=== PATIENT | female | born 1985 | race Caucasian/White ===

== ENCOUNTER 2017-05-22 03:31 | Inpatient (IN) | payer BC ==
[~2017-05-22] VITALS: Ht 165.1 cm; Wt 101.5 kg
[2017-05-28 08:57] VITALS: Ht 165.1 cm; Wt 101.5 kg
[2017-05-28] MEDS ORDERED: PRENTAB26 PO (09:01)
[2017-05-28] MEDS ORDERED: LACTATED RINGER'S 1000ML 1,000 ML IV PRN (09:19)
[2017-05-28] MEDS ORDERED: MISOPROSTOLTAB 50 MCG TAB PO PRN (09:30)
[2017-05-28] MEDS ORDERED: PENICILLIN G POTASSIUM IV 6 MU in DEXTROSE 5% 250ML 250 ML IV ONE (09:45)
[2017-05-28 09:48] LABS: HEMATOCRIT 38.7 % (37-47); MEAN CELL VOLUME 87.6 fL (80-100); MEAN CORPUSCULAR HEMOGLOBIN 30.3 pg (25-34); MEAN CORPUSCULAR HGB CONC 34.6 g/dl (32-36); MEAN PLATELET VOLUME 12.5 fL (7.4-10.4); PLATELET COUNT 161 K/uL (130-400); RED BLOOD COUNT 4.42 M/uL (4.2-5.4)
--- NOTE | 2017-05-28 13:42 | HISTORY & PHYSICAL EXAMINATION ---
DATE OF ADMISSION: 05/28/2017 HISTORY OF PRESENT ILLNESS: The patient is a 32-year-old G1, P0, due date 05/22/2017, making her 40 weeks and 6 days today, who presented to labor and delivery for induction of labor for postdates. On arrival to labor and delivery, she had no shortness of breath, no chills, no fever. heart rate is category 1. COURSE: Has been unremarkable. LABS: Blood type is A positive, antibody negative, rubella immune, GBS positive. PAST MEDICAL HISTORY: None. PAST SURGICAL HISTORY: History of dental surgery. SOCIAL HISTORY: The patient denies tobacco, drug or alcohol use. OBSTETRICS/GYNECOLOGIC HISTORY: This is the patient's first . ALLERGIES: THE PATIENT IS ALLERGIC TO TRAMADOL. PHYSICAL EXAMINATION: GENERAL: Well-developed, well-nourished white female in no acute distress. HEART: S1, S2, regular rhythm and rate. LUNGS: Clear to auscultation bilaterally. ABDOMEN: Gravid. Bedside ultrasound shows cephalic presentation. Pelvic exam shows a fingertip, thick and posterior, -3 station. Estimated weight by Stepan's is 8.5. EXTREMITIES: No cyanosis, clubbing or edema. ASSESSMENT AND PLAN: A 32-year-old G1, P0 at 40 weeks and 6 days, here for post-dates labor induction. The patient is admitted. We discussed induction plan. The patient has agreed to plan. The patient is positive GBS, so will receive GBS prophylaxis when labor becomes active. PLAN: Anticipate vaginal delivery.
[2017-05-28] MEDS ORDERED: DINOPROSTONE 10 MG INSERT PV ONE (21:30)
[2017-05-29] MEDS ORDERED: NURSING VERBAL MED ORDER ONE (02:15)
[2017-05-29] MEDS ORDERED: LACTATED RINGER'S 1000ML 500 ML IV PRN ×3 (09:31→22:12)
[2017-05-29] MEDS ORDERED: OXYTOCIN 30 UNITS/500ML NSS IV PRN (09:45)
[2017-05-29] MEDS: LACTATED RINGER'S 1000ML 1,000 ML IV SCH ×3 (09:50→13:24)
[2017-05-29] MEDS ORDERED: PENICILLIN G POTASSIUM IV 6 MU in DEXTROSE 5% 250ML 250 ML IV ONE (10:15)
[2017-05-29] MEDS ORDERED: EpHEDrine SULFATE INJ 50 MG/ML AMP ONE (11:38)
[2017-05-29] MEDS ORDERED: BUPIVACAINE 0.25% 30 ML VIAL ONE (11:38)
[2017-05-29] MEDS ORDERED: FENTANYL CITRATE INJ 50 MCG/1 ML 2 ML VIAL ONE (11:39)
[2017-05-29] MEDS ORDERED: FENTANYL 2MCG/ML ROPIV 1.25MG/ML 100ML BAG EPI ONE (11:39)
[2017-05-29] MEDS ORDERED: FENTANYL 2MCG/ML ROPIV 1.25MG/ML 100ML BAG EPI PRN (12:45)
[2017-05-29] MEDS ORDERED: NALOXONE HCL INJ 0.4 MG/1 ML VIAL/CARP IV PRN (12:45)
[2017-05-29] MEDS ORDERED: EpHEDrine SULFATE INJ 50 MG/ML AMP IV PRN ×3 (12:45→22:15)
[2017-05-29] MEDS: PENICILLIN G POTASSIUM IV 3 MU in DEXTROSE 5% 100ML 100 ML IV PRN ×2 (14:32→18:56)
[2017-05-29] MEDS ORDERED: CITRIC ACID/SODIUM CITRATE 15 ML UDC PO ONE (20:15)
[2017-05-29] MEDS ORDERED: MoRPHine SULFATE PF 1 MG/ML 10 ML AMP/VIAL ONE (20:28)
[2017-05-29] MEDS ORDERED: CEFAZOLIN IV 3,000 MG in SYRINGE 0 ML IV SCH (20:30)
[2017-05-29] MEDS ORDERED: EpHEDrine SULFATE 50MG/5ML SYR ONE (21:35)
[2017-05-29] MEDS ORDERED: METOCLOPRAMIDE HCL INJ 5 MG/ML 2 ML VIAL ONE (21:35)
[2017-05-29] MEDS ORDERED: OXYTOCIN INJ 10 UNITS/ML VIAL ONE ×3 (21:35→21:56)
[2017-05-29] MEDS ORDERED: ONDANSETRON INJ 2 MG/ML 2 ML VIAL ONE (21:35)
[2017-05-29] MEDS ORDERED: PHENYLEPHRINE 100MCG/ML 5ML SYR ONE (21:35)
[2017-05-29] MEDS ORDERED: MEPERIDINE HCL 25 MG/ML CARP ONE ×2 (21:45→22:18)
[2017-05-29] MEDS ORDERED: SODIUM CHLORIDE 0.9% 1000ML 1,000 ML IV PRN (22:12)
[2017-05-29] MEDS ORDERED: NALOXONE HCL INJ 0.08 MG in SYRINGE 1.8 ML IV PRN (22:12)
[2017-05-29] MEDS ORDERED: NALOXONE HCL INJ 1 MG in SODIUM CHLORIDE 0.9% 1000ML 1,000 ML IV PRN ×4 (22:12)
[2017-05-29] MEDS ORDERED: HYDROCORTISONE ACETATE 25 MG SUPP PR PRN (22:15)
[2017-05-29] MEDS ORDERED: ONDANSETRON INJ 2 MG/ML 2 ML VIAL IV PRN ×2 (22:15)
[2017-05-29] MEDS ORDERED: SUPERCREAM 0.870 % 15GM JAR EXT PRN (22:15)
[2017-05-29] MEDS ORDERED: OXYTOCIN INJ 30 UNITS in LACTATED RINGER'S 1000ML 1,000 ML IV SCH (22:15)
[2017-05-29] MEDS ORDERED: LANOLIN OINT EXT PRN ×2 (22:15)
[2017-05-29] MEDS ORDERED: DIPHTHERIA/TETANUS/PERTUSSIS 0.5 ML SYR/VIAL IM. ONE (22:15)
[2017-05-29] MEDS ORDERED: PROMETHAZINE HCL INJ 12.5 MG in SODIUM CHLORIDE 0.9% 50ML 50 ML IV PRN (22:15)
[2017-05-29] MEDS ORDERED: BENZOCAINE 20% AER SPR 82.5 GM CAN EXT PRN (22:15)
[2017-05-29] MEDS ORDERED: ATROPINE SULFATE 0.1 MG/ML 5ML SYR IV PRN (22:15)
[2017-05-29] MEDS ORDERED: MAGNESIUM HYDROXIDE SUSP 30 ML UDC PO PRN (22:15)
[2017-05-29] MEDS ORDERED: MEPERIDINE HCL 25 MG/ML CARP IV PRN ×2 (22:15)
[2017-05-29] MEDS ORDERED: DiphenhydrAMINE HCL 50 MG/ML VIAL IV PRN (22:15)
[2017-05-29] MEDS ORDERED: NO NARCOTICS OR SEDATIVES SCH (22:15)
[2017-05-29] MEDS ORDERED: KETOROLAC TROMETHAMINE 30 MG/ML VIAL IV. PRN ×2 (22:15)
[2017-05-29] MEDS ORDERED: NALBUPHINE HCL INJ 10 MG/ML AMP IV PRN (22:15)
[2017-05-29] MEDS ORDERED: MoRPHine SULFATE PF 1 MG/ML 10 ML AMP/VIAL EPI PRN (22:15)
[2017-05-29] MEDS ORDERED: NALOXONE HCL 0.4 MG/1 ML VIAL/CARP IV PRN (22:15)
[2017-05-29] MEDS ORDERED: PHENYLEPHRINE 100MCG/ML 5ML SYR IV PRN (22:15)
[2017-05-29] MEDS ORDERED: SENNA 8.6 MG TAB PO PRN (22:15)
--- NOTE | 2017-05-29 22:16 | [facility] Post Operative Brief Note ---
Immediate Operative Summary Operative Date May 29, 2017. Pre-Operative Diagnosis IUP 41 weeks. Failure to progress Post-Operative Diagnosis IUP 41 weeks. Failure to progress Procedure(s) Performed Primary Low Transverse SECTION for delivery of a live female child at [address] Soliman Milk Condenser Surgeon(s) Yun Pelayo RN Estimated Blood Loss 800cc Findings Patient delivered a viable female weighing 8# 1 oz in the vertex position via PLTCS at 2125 with APGARs of 8 at 1 minute and 9 at 5 minutes. Cord blood obtained and intact placenta with a 3 VC delivered manually at 2126 and sent to pathology. Grossly normal post uterus and bilateral tubes and ovaries noted. Both patient and baby tolerated the surgery well and were sent to recovery with stable vital signs. Fluids (cc crystalloids) 2100 Specimens Placenta (Exam) Cord Blood Drains Saini to gravity Anesthesia Epidural bolus Complication(s) None Disposition L&D
--- NOTE | 2017-05-29 22:53 | OPERATIVE REPORT ---
DATE OF OPERATION: 05/29/2017 PREOPERATIVE DIAGNOSES: 1. Intrauterine at 41 weeks gestation. 2. Failure to progress. POSTOPERATIVE DIAGNOSES: 1. Intrauterine at 41 weeks gestation. 2. Failure to progress. OPERATIVE PROCEDURE: Primary low transverse section. SURGEON: aMrcelo Soliman DO. RECORD CUTTER: Yun Pelayo RN. ANESTHESIA: Epidural bolus. ESTIMATED BLOOD LOSS: 800 mL. IV FLUIDS: 2100 mL crystalloids. SPECIMENS: Placenta and cord blood. DRAINS: Saini to gravity. COMPLICATIONS: None. DISPOSITION: To labor and delivery. OPERATIVE FINDINGS: The patient delivered a viable female infant weighing 8 pounds 1 ounce in the vertex position via primary low transverse section at 2125 on 05/29/2017. Apgars were 8 at 1 minute and 9 at 5 minutes. Please see remediation project engineer's notes for further baby assessment. Cord blood was obtained and intact placenta with 3-vessel cord was delivered manually at 2126 and sent to pathology. Grossly normal uterus and bilateral tubes and ovaries were noted. Both patient and baby tolerated the surgery well and were sent to recovery with stable vital signs. INDICATIONS FOR PROCEDURE: The patient is a 32-year-old 1, para 0 at 41 weeks gestation who was admitted to labor and delivery on the morning of 05/28/2017 for a scheduled induction of labor secondary to post-dates. She received Cytotec and Cervidil on the day of admission. On the morning of 05/29/2017, her Cervidil was removed at around 9:30 a.m. and oxytocin per protocol was begun. She received an epidural for anesthesia. Artificial rupture of membranes was performed at 1755 with clear amniotic fluid noted. An IUPC was placed at the time of rupture. Oxytocin was continued. Despite adequate contractions, she reached no further than 4-5 cm, 60% effaced and -3 station. There is no descent of the baby. Therefore, a primary section was recommended. Risks, benefits and alternatives were discussed with the patient and informed consent was obtained. OPERATIVE PROCEDURE IN DETAIL: The patient was taken to the operating room where her epidural was bolused. She was placed in a dorsal supine position with a left lateral tilt. She was then prepped and draped in a manner appropriate for the procedure. Once the anesthesia was found to be adequate, a Pfannenstiel skin incision was made 2 fingerbreadths above the pubic symphysis and was carried down through to a layer of the rectus fascia. Fascia was nicked in the midline and extended bilaterally with curved Hong scissors. The superior aspect of the fascial incision was grasped with Chuy clamps, elevated, and the rectus muscles were dissected off with the use of the curved Hong scissors and electrocautery. Likewise, the inferior aspect of the fascial incision was grasped with Chuy clamps, elevated, and the rectus muscles were dissected off with the use of the curved Hong scissors. The rectus muscles were in midline and the peritoneum was entered bluntly. The peritoneal incision was then extended cephalocaudally with gentle traction. A large Jose Luis self-retaining retractor was placed within the abdomen and a bladder blade was then placed within the abdomen. The vesicouterine peritoneum was identified and a bladder flap was created with Metzenbaum scissors and digital traction. The bladder flap was reincorporated beneath the [place] blade. A transverse incision was then made on the uterus and extended bilaterally with digital traction. The head was identified and delivered through the incision along with the rest of the body. Baby was bulb suctioned at delivery. Cord was clamped x2 and cut. Baby was immediately handed to an awaiting remediation project engineer for further evaluation and management. Please see their notes for further baby assessment. Cord blood was then obtained and intact placenta with 3-vessel cord was delivered manually through the incision and sent to pathology. Uterus was then exteriorized and wrapped in a moist laparotomy sponge. The uterus was then cleared of any trailing membranes and debris with laparotomy sponge. The uterine incision was then grasped with ring forceps at four quadrants and was closed with 0 Vicryl suture in continuous locking fashion. A second layer of 0 Vicryl suture was used in imbricating fashion to ensure hemostasis. Any residual bleeding was suture ligated with 0 Vicryl suture in a [id number] interrupted fashion. Excellent hemostasis was noted at the incision. The bladder flap was reapproximated to the lower uterine segment with 3-0 Vicryl suture in continuous running fashion. The posterior cul-de-sac was then irrigated with warm saline solution. The uterus was then placed back within its normal anatomic position within the abdomen. The anterior cul-de-sac was then irrigated with warm saline solution. Excellent hemostasis was noted at the incision. The Jose Luis retractor and all instruments were removed from the abdomen. The peritoneum was then grasped with Karuna clamps at 4 quadrants and was closed with 2-0 Vicryl suture in continuous running fashion. The rectus fascia was then closed with 0 Vicryl suture in continuous running fashion. The subcutaneous tissue was reapproximated with 2-0 Vicryl suture in an interrupted fashion. Skin was then closed with poli. Excellent hemostasis was noted through all tissue layers. All sponge, instrument and needle counts were found to be correct x2. Both patient and baby tolerated the surgery well and were in recovery with stable vital signs. I attest to the content of the Intraoperative Record and any orders documented therein. Any exception s are noted below.
[2017-05-30] VITALS (20 sets, daily range): BP systolic 112–124; BP diastolic 72–82; PULSE 73–102; TEMP 36.5–37.3; O2SAT 96–100
[2017-05-30] MEDS ORDERED: LACTATED RINGER'S 1000ML 1,000 ML IV SCH (06:30)
[2017-05-30 06:46] LABS: BASO % 0.1 %; BASO ABS # 0.01 K/uL (0-0.2); COMPLETE YES; EOS % 0.3 %; IG% 0.8 %; LYMPH % 15.9 %; LYMPH ABS # 2.12 K/uL (1.2-3.4); MEAN CELL VOLUME 89.6 fL (80-100); MEAN CORPUSCULAR HEMOGLOBIN 30.7 pg (25-34); MEAN CORPUSCULAR HGB CONC 34.3 g/dl (32-36); MEAN PLATELET VOLUME 11.2 fL (7.4-10.4); NEUT % 76.9 %; PLATELET COUNT 121 K/uL (130-400); RED BLOOD COUNT 3.35 M/uL (4.2-5.4)
[2017-05-30] MEDS: DOCUSATE SODIUM 100 MG CAP PO SCH ×2 (07:34→19:47)
[2017-05-30] MEDS: FERROUS SULFATE 325 MG TAB PO SCH (07:34)
[2017-05-30] MEDS: PRENATAL VITAMIN TAB PO SCH (07:34)
[2017-05-30] MEDS: SIMETHICONE 80 MG CHEW PO SCH ×4 (07:35→19:47)
--- NOTE | 2017-05-30 08:22 | OB/GYN Progress Note ---
SENIOR ONLINE MARKETING MANAGER Progress Note Date of Service: May 30, 2017. Patient is seen and examined. She feels well, no complaints. Pain is under control. Not OOB yet Tolerating clears with out N&V Flatus neg Bleeding is minimal No fever/ chills/ CP/ SOB/ N&V/ Leg pain Breast feeding without problems Date Time Temp Pulse Resp B/P (MAP) Pulse Ox O2 Delivery O2 Flow Rate FiO2 05/30/17 06:00 18 98 05/30/17 05:00 16 100 05/30/17 04:50 37.3 102 18 114/82 (93) 100 Room Air 05/30/17 04:00 18 100 05/30/17 03:00 18 100 05/30/17 02:00 16 100 05/30/17 01:00 16 100 05/30/17 00:55 100 Room Air 05/30/17 00:55 36.7 81 16 117/75 (89) 100 Room Air UOP: 200 last shift, small amount about 50 ml dark concentrated in the bag PE: General: Alert, orientedx3, NAD CVS: S1S2 RRR Lungs; CTAB Abd: soft, NT, fundus firm, below Umbilicus Dreassing: Clean, dry, intact Perineum intact, Lochia rubra minimal Ext; NT, no edema Last 24 Hours Test 05/30/17 06:24 White Blood Count 13.30 K/uL Red Blood Count 3.35 M/uL Hemoglobin 10.3 g/dL Hematocrit 30.0 % Mean Corpuscular Volume 89.6 fL Mean Corpuscular Hemoglobin 30.7 pg Mean Corpuscular Hemoglobin Concent 34.3 g/dl Platelet Count 121 K/uL Mean Platelet Volume 11.2 fL Neutrophils (%) (Auto) 76.9 % Lymphocytes (%) (Auto) 15.9 % Monocytes (%) (Auto) 6.0 % Eosinophils (%) (Auto) 0.3 % Basophils (%) (Auto) 0.1 % Neutrophils # (Auto) 10.23 K/uL Lymphocytes # (Auto) 2.12 K/uL Monocytes # (Auto) 0.80 K/uL Eosinophils # (Auto) 0.04 K/uL Basophils # (Auto) 0.01 K/uL RDW Standard Deviation 46.5 fL RDW Coefficient of Variation 14.0 % Immature Granulocyte % (Auto) 0.8 % Immature Granulocyte # (Auto) 0.10 K/uL AP: 32 yo s/p C Section, pod# 1 VSS Afebrile doing well H&H stable UOP borderline, will give 500 ml bolus Continue routine postop care Encourage ambulation in the afternoon, PO intake All questions were answered
[2017-05-30] MEDS ORDERED: SODIUM CHLORIDE 0.9% 500ML 500 ML IV SCH (08:30)
[2017-05-30] MEDS ORDERED: PENICILLIN G POTASSIUM IV 6 MU in DEXTROSE 5% 250ML 250 ML IV ONE (09:45)
[2017-05-30] MEDS: OXYCODONE/ACETAMINOPHEN 5-325 TAB PO PRN ×2 (13:58→21:27)
[2017-05-30] MEDS: IBUPROFEN 600 MG TAB PO PRN ×2 (13:58→21:27)
[2017-05-30] MEDS ORDERED: ZOLPIDEM TARTRATE 5 MG TAB PO PRN (14:00)
[2017-05-30] MEDS ORDERED: DC INTRASPINAL MORPHINE SCH (14:00)
[2017-05-30] MEDS ORDERED: DiphenhydrAMINE HCL 50 MG/ML VIAL IV PRN (14:00)
[2017-05-30] MEDS ORDERED: OXYCODONE/ACETAMINOPHEN 5-325 TAB PO PRN (14:00)
[2017-05-30] MEDS ORDERED: ONDANSETRON INJ 2 MG/ML 2 ML VIAL IV PRN (14:00)
[2017-05-30] MEDS ORDERED: KETOROLAC TROMETHAMINE 30 MG/ML VIAL IV. PRN (14:00)
[2017-05-30] MEDS ORDERED: BISACODYL 5 MG TABEC PO ONE (22:00)
[2017-05-31] MEDS: OXYCODONE/ACETAMINOPHEN 5-325 TAB PO PRN ×5 (01:00→23:39)
[2017-05-31] MEDS: IBUPROFEN 600 MG TAB PO PRN ×5 (01:02→23:38)
[2017-05-31 07:01] LABS: HEMATOCRIT 30.2 % (37-47)
[2017-05-31 08:00] VITALS: BP 117/81; PULSE 80; TEMP 36.7; O2SAT 100
[2017-05-31] MEDS: SIMETHICONE 80 MG CHEW PO SCH ×4 (09:29→19:46)
[2017-05-31] MEDS: FERROUS SULFATE 325 MG TAB PO SCH (09:29)
[2017-05-31] MEDS: PRENATAL VITAMIN TAB PO SCH (09:29)
[2017-05-31] MEDS: DOCUSATE SODIUM 100 MG CAP PO SCH ×2 (09:29→19:46)
--- NOTE | 2017-05-31 10:45 | Surgery Progress Note ---
Surgery Progress Note Date of Service May 31, 2017. Subjective Post OP Day: 2 + feeling well, + ambulating, + bowel movement, + pain controlled, + diet ( Tolerating PO food and meds), No complaints, No chest pain, No SOB, No flatus, No using SULFUR BURNER, No nausea, No vomiting Objective Vital Signs: Date Time Temp Pulse Resp B/P (MAP) Pulse Ox O2 Delivery O2 Flow Rate FiO2 05/31/17 08:00 36.7 80 16 117/81 (93) 100 Room Air 05/30/17 23:50 97 Room Air 05/30/17 23:50 37.0 90 18 116/78 (91) Room Air 05/30/17 19:50 36.5 93 18 123/80 (94) 98 Room Air 05/30/17 16:00 96 Room Air 05/30/17 16:00 37.2 92 18 124/76 (92) 96 Room Air 05/30/17 14:00 20 99 05/30/17 13:15 18 100 05/30/17 12:30 16 98 05/30/17 11:44 36.6 73 18 112/72 (85) 97 Room Air 05/30/17 11:30 97 Room Air 05/30/17 11:30 18 97 05/30/17 11:30 36.6 73 18 112/72 (85) 97 Room Air General Appearance: WD/WN, no apparent distress Head: normocephalic, atraumatic Neck: supple, no adenopathy, thyroid normal, no JVD, no carotid bruits, trachea midline Respiratory/Chest: chest non-tender, lungs clear, normal breath sounds, no respiratory distress, no accessory muscle use Cardiovascular: regular rate, rhythm, no edema, no gallop, no JVD, no murmur Abdomen: normal bowel sounds, non tender, non distended, soft, no organomegaly , no pulsatile mass Incision(s): clean, dry, intact, no erythema, no drainage Laboratory Results: Results Past 24 Hours Test 05/31/17 06:21 Range/Units Hemoglobin 10.0 12.0-16.0 g/dL Hematocrit 30.2 37-47 % Assessment & Plan C/sec Day #2 Pt doing well Anticipate disch tomorrow
[2017-05-31 16:50] VITALS: BP 121/86; PULSE 85; TEMP 37; O2SAT 98
[2017-05-31] MEDS ORDERED: BISACODYL 10 MG SUPP PR PRN (22:15)
[2017-05-31 23:30] VITALS: BP 130/82; PULSE 79; TEMP 37.3; O2SAT 100
[2017-06-01] MEDS: OXYCODONE/ACETAMINOPHEN 5-325 TAB PO PRN ×2 (03:13→11:13)
[2017-06-01] MEDS: IBUPROFEN 600 MG TAB PO PRN (03:13)
[2017-06-01 07:45] VITALS: BP 119/80; PULSE 91; TEMP 36.9
[2017-06-01] MEDS: SIMETHICONE 80 MG CHEW PO SCH ×2 (07:53→12:06)
[2017-06-01] MEDS: PRENATAL VITAMIN TAB PO SCH (07:54)
[2017-06-01] MEDS: FERROUS SULFATE 325 MG TAB PO SCH (07:54)
[2017-06-01] MEDS: DOCUSATE SODIUM 100 MG CAP PO SCH (07:54)
[2017-06-01] MEDS ORDERED: MTR600X PO (10:01)
--- NOTE | 2017-06-01 10:02 | Discharge Instructions ---
Discharge Instructions Date of Service Jun 01, 2017. Admission Reason for Admission: Induction Discharge Discharge Diagnosis / Problem: term delivered by Discharge Goals Goal(s): Routine recovery after surgery Activity Recommendations Activity Limitations: as noted below Lifting Limitations: no more than 10 pounds Exercise/Sports Limitations: as tolerated, gradually increase as tolerated May Resume Sexual Activity: after follow-up appointment Shower/Bathe: no limitations Driving or Machine Use: resume 3 days after discharge . Current Hospital Diet Patient's current hospital diet: Regular OB Diet Discharge Diet Recommended Diet: Regular OB Diet Fluid Restriction: None Procedures Procedures Performed: Primary Low Transverse SECTION for delivery of a live female child at 2126 Pending Studies Studies pending at discharge: no Medical Emergencies . Who to Call and When: Medical Emergencies: If at any time you feel your situation is an emergency, please call 911 immediately. . Non-Emergent Contact Non-Emergency issues call your: Primary Care Provider . . "Provider Documentation" section prepared by Jesus Ag. . VTE Core Measure Inpt VTE Proph given/why not?: Treatment not indicated
[2017-06-01] MEDS ORDERED: OXYC-57 PO (11:14)
--- NOTE | 2017-06-01 11:16 | Surgery Progress Note ---
Surgery Progress Note Date of Service Jun 01, 2017. Subjective Post OP Day: 3 + feeling well, + ambulating, + flatus, + pain controlled Objective Vital Signs: Date Time Temp Pulse Resp B/P (MAP) Pulse Ox O2 Delivery O2 Flow Rate FiO2 06/01/17 07:45 36.9 91 20 119/80 (93) 05/31/17 23:30 100 Room Air 05/31/17 23:30 37.3 79 20 130/82 (98) 100 Room Air 05/31/17 16:50 98 Room Air 05/31/17 16:50 37.0 85 18 121/86 (98) 98 Room Air General Appearance: no apparent distress Abdomen: non tender, non distended, soft Incision(s): clean, dry, intact Extremities: non-tender, normal inspection, no pedal edema Assessment & Plan POD#3 discharged regular diet
[2017-06-01 13:50] VITALS: BP_DIAS 80; PULSE 91; TEMP 36.9
--- NOTE | 2017-06-05 11:52 | Discharge Summary ---
Discharge Summary Date of Service Jun 05, 2017. Discharge Summary Admission Date: May 28, 2017 at 07:28 Discharge Date: Jun 01, 2017 Discharge Disposition: Home Principal Diagnosis: IUP at 41 weeks, failure to progress Procedures: Primary Low transverse section Medication Reconciliation New Medications: Ibuprofen (Ibuprofen) 600 Mg Tab 600 MG PO Q4H PRN for Pain, OWENS, Cramping, or Fever, #30 TAB 2 Refills Oxycodone/Acetaminophen 5MG/325MG (Percocet 5MG/325MG) Tab 1 TAB PO Q4H PRN for Pain - Pain Scale 1-5, #14 TAB 0 Refills PAIN Continued Medications: Multivit/Min/Iron/Fol Ac/Pren ( Vitamin) Tab 1 TAB PO DAILY, TAB Admission Information HPI (per Admitting provider): The patient is a 32-year-old 1, para 0 at 41 weeks gestation who was admitted to labor and delivery on the morning of 05/28/2017 for a scheduled induction of labor secondary to post-dates. She received Cytotec and Cervidil on the day of admission. On the morning of 05/29/2017, her Cervidil was removed at around 9:30 a.m. and oxytocin per protocol was begun. She received an epidural for anesthesia. Artificial rupture of membranes was performed at 1755 with clear amniotic fluid noted. An IUPC was placed at the time of rupture. Oxytocin was continued. Despite adequate contractions, she reached no further than 4-5 cm, 60% effaced and -3 station. There is no descent of the baby. Therefore, a primary section was recommended. Risks, benefits and alternatives were discussed with the patient and informed consent was obtained. Physical Exam (per Admitting): General Appearance: WD/WN, no apparent distress Respiratory/Chest: chest non-tender, lungs clear Cardiovascular: regular rate, rhythm Abdomen/GI: normal bowel sounds, soft Genitourinary - Female: external genitalia normal, normal pelvic exam, normal cervix Extremities/Musculoskelatal: normal inspection, no calf tenderness, normal range of motion Neurologic/Psych: alert, oriented x 3 Skin: normal color, warm/dry, no rash Hospital Course Patient underwent a primary section secondary to failure to progress, She reached 4-5 cm dilation with no further descent or dilation despite adequate contractions with pitocin. Her surgery went uncomplicated and both patient and baby were sent to recovery with stable vital signs. The patients postoperative course was uneventful. Her santana catheter was removed on POD # 1. Her diet and activity were advanced as tolerated. Her incision remained clean, dry and intact. Her hemoglobin remained stable. She was discharged on POD # 3 with discharge instructions. Total time spent on discharge = 30 mins This includes examination of the patient, discharge planning, medication reconciliation, and communication with other providers. Discharge Instructions ACTIVITY RECOMMENDATIONS: * Gradual return to full activity over the next 2-3 weeks. * No lifting - nothing heavier than baby over the next 2-3 weeks. * Do not engage in vigorous exercise, sexual activity or sports until cleared by your physician. * Do not drive or operate any motorized equipment until cleared by your physician. * You may shower/bathe daily. BREAST CARE: If you are not breast feeding: * Wear a supportive bra 24 hours a day for one to two weeks. * Avoid stimulating your breasts and nipples as much as possible during the first few weeks after delivery. * When taking a shower, have the warm water hit your back, not breasts. * When your breasts feel full, apply ice packs. Usually three to four times a day helps ease the discomfort. * Take a mild pain medication (Tylenol/Motrin) when you are uncomfortable. If breast feeding: * Use breast milk to lubricate nipples. Lansinoh cream may be used for sore nipples. You do not need to remove cream prior to breast feeding. If using a different brand of cream, check the label for directions regarding removal of cream prior to nursing. * Wear a supportive bra. * If having problems with breasts or breast feeding, call a audit consultant or your health care provider. OVER THE COUNTER MEDICATION: * For discomfort or pain, you may use Acetaminophen (Tylenol), Ibuprofen (Advil ), or Naproxen (Aleve) following the package directions. * For constipation you may use Colace following the package directions. SPECIAL CARE INSTRUCTIONS: When you are discharged from the hospital, it is important for you to follow the instructions listed below: * During the first week at home, you should be able to care for yourself and your baby. In addition, the usual light household activities are encouraged. * Limit your activities to the way you feel. Do not try to clean the house or move furniture. Be sensible. * If you actively engage in sports and have done so up until the time of your delivery, you may resume these activities as soon as you feel able. This may take up to one month or even longer. Use good judgment. * Continue to take your vitamins for at least six weeks after the of your baby. * Your diet need not be limited unless you were on a special diet before your delivery. Breast-feeding mothers need around 2500 calories per day and at least 64-80 ounces of fluid per day (8 to 10 glasses). * You should eat foods from the four major food groups. Crash diets or fad diets are to be avoided. Eating lean meats, fresh fruits and vegetables, low-fat dairy products, high fiber foods and a regular exercise program, will help you get back to your pre- weight without putting your health at risk. * Constipation is sometimes a problem after delivery. Take a mild laxative as needed. If breast feeding, Milk of Magnesia is acceptable to use. You may use a suppository or Fleets enema if no episiotomy. * A daily shower or tub bath is suggested. Be sure to thoroughly and gently dry the perineum. * A bloody vaginal discharge will usually continue until around four weeks post . A small amount of bleeding may continue for as long as six weeks. Vaginal discharge changes from the bright red bleeding after delivery to pink then brownish and finally yellowish-pink before becoming white and disappearing. * Bleeding may increase with activity. Your first period may come in 4-8 weeks. If you are breast feeding, your period may be delayed even longer. * [place] (sex) can begin whenever both you and your partner feel comfortable and do not have any form of genital infection. It is recommended that you wait at least six weeks for internal and external healing to occur. If you have questions, please talk to your health care practitioner. A condom should be used to prevent infection and . * Foreplay, gentle intercourse and lubrication is very important the first several times to prevent pain. A water-based lubricant such as K-Y jelly or Astroglide may be used. * Tampons and/or Douching should be avoided until after six weeks check-up. * If you have RH negative blood and your baby is RH positive, you will receive RHOGAM by injection prior to discharge. The nurse will give you a card to keep with you that has the date and place that you received RHOGAM after delivery. * During your care, you had a Rubella screen done to check for the presence of rubella antibodies in your blood. If your test was negative, you will receive a Rubella vaccine prior to discharge. This vaccine may cause a fever, soreness at the injection site and flu-like symptoms. If these symptoms persist, notify your health care practitioner. is not advised for three months after a Rubella vaccine. * Verbalizes understanding of car seat law as reviewed with patient nursing. * Car Seat hand-out given and reviewed with patient by nursing. * Shaken baby information reviewed with patient by nursing. Call you doctor if: * Heavy bleeding (saturating several pads an hour) or passing clots the size of your fist. * A fever >101 degrees F (38.3 degrees C) on two occasions four hours apart and /or chills. * Unusual pain in the pelvic or vaginal areas. Pain should improve each day . * Call the doctor for any increased redness, drainage or swelling around the incision and any pain unrelieved by prescribed pain medication. * Any signs or symptoms of phlebitis (possible blood clots forming in the veins ): leg pain, warm, red or swollen area on leg. * "Baby Blues" lasting longer than two weeks. If you have any questions or concerns, call your health care practitioner at . FOLLOW-UP VISIT: * Incision check (staple removal) in 1 week. Please call doctor's office at to set up appointment. * Please call the office at to schedule a 6 week examination. It is important you keep this appointment. * It is important for you to make arrangements for either yearly or twice yearly check-ups thereafter.
== END 2017-06-01 13:55 | disposition home or self-care (01) | DRG 766 ==
LOC: C.LD 05-28 07:28 → C.OBG 05-30 00:47
PROVIDERS: ADMIT Obstetrics & Gynecology; ATTEND Obstetrics & Gynecology
PROC: 3E0P7GC Introduction of Other Therapeutic Substance into Female Reproductive, Via Natural or Artificial Opening (ICD-10-PCS; principal; 2017-05-28)
PROC: 10D00Z1 Extraction of Products of Conception, Low, Open Approach (ICD-10-PCS; 2017-05-29)
DX: O62.1 Secondary uterine inertia (principal); O48.0 Post-term pregnancy; O99.824 Streptococcus B carrier state complicating childbirth; Z3A.40 40 weeks gestation of pregnancy; Z37.0 Single live birth

== ENCOUNTER 2019-05-06 05:24 | Inpatient (IN) ==
--- NOTE | 2019-04-30 11:46 | Anesthesiology Consultation ---
Date of Service April 30, 2019 Assessment & Plan (1) Encounter for pre-operative examination: - No PAT labs: rosalie Beltran at OB office, no preop labs to be drawn at [facility]* Chart Review Chart Review: Pending: Refer to Additional Notes / Consult section (pending labs AM DOS) and Patient seen in Pre Admission Testing Teaching & Discussion Pre-Anesthesia Teaching/Discussion Notes: Instructed NPO after midnight before surgery,except medications with 15 cc of water. Medication instructions provided according to the [facility] guidelines. History Surgery Operation Date: 05/06/19 07:30 Proposed Procedures p Section in LD - Ryan Gomez MD Height/Weight Height: 5 ft 4.5 in Weight: 113.1 kg Allergies Allergy/AdvReac Type Severity Reaction Status Date / Time acetaminophen [From Ultracet] Allergy Unknown Hives Verified 04/23/19 09:43 tramadol Allergy Unknown Hives Verified 04/30/19 11:56 Medications Home Medications Medication Instructions Recorded Confirmed Last Taken PNV cmb#95-ferrous fumarate-FA 1 tab PO DAILY 04/23/19 04/23/19 Unknown [] calcium carbonate [Tums] 200 mg PO UD PRN 04/23/19 04/23/19 Unknown Past Medical History Medical History Heartburn during History of anxiety Obesity Exercise / Class Metabolic Activity III < 4 Walking/Shop/Light housework Past Family History Family History Other Family history of diabetes mellitus in father Past Surgical History Surgical History History of section c/s: 06/01/17: failure to progress-- CSE x2 attempts at L3-L4-- "good pain control" until "pinchy" at the end History of wisdom tooth extraction Past Anesthesia History No Hx of Anesthesia Complications and No Family Hx of Anesthesia Complications History of PONV No Hx of PONV and No Hx of Motion Sickness Social History Smoking Status: Never smoker Do You Dip or Chew Tobacco: No Hx Alcohol Use: No Hx Substance Use: No substance use type: does not use Review of Systems related reflux. Patient denies chest pain, shortness of breath, palpitations. Physical Exam Vital Signs VITALS BP 117/79 P 87 TEMP 98.5 SP02 96%RA RESP 16 PHYSICAL Full neck and c-spine range of motion. Full TMJ range of motion. TMD 4 finger breaths Mallampati Score 2 Dentition: intact Lungs: clear throughout to auscultation Cardiac: regular rate and rhythm, no murmurs noted Spine: normal Extremities: no edema
[2019-05-06] MEDS: LACTATED RINGER'S 1,000 ML IV SCH ×2 (05:50→06:49)
[2019-05-06 05:53] LABS: Basophils # (auto) 0.02 K/uL (0-0.2); Basophils % (auto) 0.2 %; Eosinophils % (auto) 1.8 %; Hematocrit (blood only) 36.9 % (37-47); Hemoglobin 12.3 g/dL (12.0-16.0); Immature Granulocytes # (auto) 0.09 K/uL (0.00-0.02); Immature Granulocytes % (auto) 0.8 %; Lymphocytes # (auto) 2.59 K/uL (1.2-3.4); Lymphocytes % (auto) 23.7 %; Mean Corpuscular Hemoglobin 28.7 pg (25-34); Mean Corpuscular Volume 86.2 fL (80-100); Mean Platelet Volume 12.6 fL (7.4-10.4); Monocytes # (auto) 0.56 K/uL (0.11-0.59); Monocytes % (auto) 5.1 %; Neutrophils # (auto) 7.45 K/uL (1.4-6.5); Neutrophils % (auto) 68.4 %; Platelet Count 135 K/uL (130-400); RDW Coefficient of Variation 14.8 % (11.5-14.5); RDW Standard Deviation 46.2 fL (36.4-46.3); Red Blood Count 4.28 M/uL (4.2-5.4); White Blood Count 10.91 K/uL (4.8-10.8)
[2019-05-06 06:00] LABS: Mean Corpuscular Hgb Conc 33.3 g/dL (32-36)
[2019-05-06] MEDS ORDERED: CITRIC ACID/SODIUM CITRATE 15 ML UDC PO SCH (06:00)
[2019-05-06] MEDS ORDERED: CEFAZOLIN 2,000 MG in SYRINGE 0 ML IV SCH (06:00)
--- NOTE | 2019-05-06 07:35 | History & Physical Bridge Note ---
Date of Service May 06, 2019 History & Physical Bridge Note I have examined the patient, reviewed the History & Physical and in the interval since the performance of the History & Physical I have noted the following changes of clinical significance: no changes noted
[2019-05-06] MEDS ORDERED: MoRPHine SULFATE PF 1 MG/ML 10 ML AMP/VIAL ONE (07:44)
[2019-05-06] MEDS ORDERED: ePHEDrine sulfate 50 MG/ML SYR ONE (08:07)
[2019-05-06] MEDS ORDERED: OXYTOCIN 10 UNITS/ML VIAL ONE (08:07)
[2019-05-06] MEDS ORDERED: PHENYLEPHRINE 100MCG/ML 5ML SYR ONE (08:07)
[2019-05-06] MEDS ORDERED: ONDANSETRON INJ 2 MG/ML 2 ML VIAL ONE (08:23)
[2019-05-06] MEDS ORDERED: METHYLERGONOVINE MALEATE 0.2 MG/ML AMP ONE (08:23)
[2019-05-06] MEDS ORDERED: LACTATED RINGER'S 500 ML IV PRN (08:29)
[2019-05-06] MEDS ORDERED: ePHEDrine sulfate 50 MG/ML AMP IV PRN (08:29)
[2019-05-06] MEDS ORDERED: MEPERIDINE HCL 25 MG/ML CARP IV PRN (08:29)
[2019-05-06] MEDS ORDERED: NALOXONE HCL 0.08 MG in SYRINGE 1.8 ML IV PRN (08:29)
[2019-05-06] MEDS ORDERED: DiphenhydrAMINE HCL 50 MG/ML VIAL IV PRN ×2 (08:29)
[2019-05-06] MEDS ORDERED: HYDROmorphone INJ 0.5 MG/0.5 ML SYR IV PRN (08:29)
[2019-05-06] MEDS ORDERED: MoRPHine SULFATE 2 MG/ML CARP IV PRN (08:29)
[2019-05-06] MEDS ORDERED: NALOXONE HCL 0.4 MG/1 ML VIAL/CARP IV PRN (08:29)
[2019-05-06] MEDS ORDERED: PROMETHAZINE HCL 25 MG in SODIUM CHLORIDE 0.9% 50 ML IV PRN (08:29)
[2019-05-06] MEDS ORDERED: ONDANSETRON INJ 2 MG/ML 2 ML VIAL IV PRN (08:29)
[2019-05-06] MEDS ORDERED: NALOXONE HCL 1 MG in SODIUM CHLORIDE 0.9% 1000ML 1,000 ML IV PRN (08:29)
[2019-05-06] MEDS ORDERED: METOCLOPRAMIDE HCL 20 MG in SODIUM CHLORIDE 0.9% 50 ML IV PRN (08:29)
[2019-05-06] MEDS ORDERED: MoRPHine SULFATE PF 1 MG/ML 10 ML AMP/VIAL INT SPINAL SCH (08:29)
[2019-05-06] MEDS ORDERED: NO NARCOTICS OR SEDATIVES SCH (08:30)
[2019-05-06] MEDS ORDERED: DC INTRASPINAL MORPHINE SCH (08:30)
[2019-05-06] MEDS ORDERED: SODIUM CHLORIDE 0.9% 1000ML 1,000 ML IV SCH (08:30)
[2019-05-06] MEDS ORDERED: miSOPROStoL 200 MCG TAB ONE (09:00)
--- NOTE | 2019-05-06 09:20 | Post Operative Brief Note ---
Immediate Post Op Note v1 Date of Surgery May 06, 2019 Pre & Post Diagnosis Operation Date: 05/06/19 07:30 Pre-Op Diagnosis: PREVIOUS SECTION DELIVERY; DESIRES REPEAT SECTION Post-Op Diagnosis: PREVIOUS SECTION DELIVERY; DESIRES REPEAT SECTION Procedure Operation Date: 05/06/19 07:30 Actual Procedures p Section in LD; LIVE MALE INFANT AT 0815(Bilateral) - Ryan Gomez MD Surgeon Ryan Gomez MD [employer] Att[employer] Dr Guzman Estimated Blood Loss 600 Findings Consistent with Post-Op Diagnosis Drains Saini Catheter
[2019-05-06] MEDS ORDERED: BENZOCAINE 20% AER SPR 82.5 GM CAN EXT PRN (09:21)
[2019-05-06] MEDS ORDERED: DIPHTHERIA/TETANUS/PERTUSSIS 0.5 ML SYR/VIAL IM ONE (09:21)
[2019-05-06] MEDS ORDERED: HYDROCORTISONE ACETATE 25 MG SUPP PR PRN (09:21)
[2019-05-06] MEDS ORDERED: MAGNESIUM HYDROXIDE SUSP 30 ML UDC PO PRN (09:21)
[2019-05-06] MEDS ORDERED: SENNA 8.6 MG TAB PO PRN (09:21)
[2019-05-06] MEDS ORDERED: SUPERCREAM 0.870% 15 GM JAR EXT PRN (09:21)
[2019-05-06] MEDS ORDERED: LACTATED RINGER'S 1,000 ML IV SCH (09:30)
[2019-05-06] MEDS: KETOROLAC 30 MG/ML VIAL IV PRN ×3 (10:06→20:51)
--- NOTE | 2019-05-06 10:06 | Operative Report ---
DATE OF OPERATION: 05/06/2019 INDICATION FOR SURGERY: This is a 34-year-old G2, P1, prior section who wishes to have repeat . PREOPERATIVE DIAGNOSES: 1. at term. 2. Previous section, wishes to have repeat . POSTOPERATIVE DIAGNOSES: 1. at term. 2. Previous section, wishes to have repeat . SURGEON: Ryan Gomez MD SIDE PANEL PADDER: Dr. Guzman. IV FLUIDS: 800 mL. URINE OUTPUT: 325 mL. ESTIMATED BLOOD LOSS: 600 mL. FINDINGS: Live male in cephalic presentation, loose nuchal cord which was easily reduced. The patient's weight is pending. Apgars 9 and 10. Uterus, adnexa and abdomen appeared grossly normal. PATHOLOGY: Placenta. COMPLICATIONS: None. DRAINS: Saini catheter. DISPOSITION: Recovery room. ANESTHESIA: Spinal. ATTENDING FOR ANESTHESIA: Rasheed Trivedi MD DESCRIPTION OF PROCEDURE: The patient was taken to the operating room where she was prepped and draped in normal sterile fashion in dorsal lithotomy position. A Pfannenstiel incision was made through the old scar and carried down to the fascia with a scalpel. Fascia was incised in the midline and extended laterally on both sides. Pickup and Mayos were used to extend the incision laterally on both sides. Fascia was sharply dissected off the rectus abdominus muscles superiorly and inferiorly. Peritoneum was identified and abdomen was entered sharply. An Jose Luis retractor was placed in the abdomen for visualization. The vesicouterine peritoneum was sharply dissected off the lower segment of the uterus. The lower segment of the uterus appeared very thin. A transverse incision was made and extended laterally on both sides using scalpel and bandage scissors. Infant's head was delivered. Nuchal cord was identified and easily reduced. Cord was clamped and cut. was handed over to the waiting pediatric team. Details of the infant is in the pediatric record. Cord blood, cord gas was obtained and placenta was manually removed from the uterus. Uterus was exteriorized and cleared of all clots and debris. Uterus was closed in 2 layers using Vicryl stitch. There was good hemostasis post-repair. Copious amount of irrigation was used to irrigate the abdomen and the uterus was placed in the abdominal cavity. Vesicouterine peritoneum was reapproximated using plain suture. Peritoneum and fascia reapproximated using plain suture. All instruments at this point removed from the abdomen and accounted for. Fascia was closed in a running fashion using Vicryl stitch. SubQ spaces reapproximated using plain suture and skin was closed with 4-0 Monocryl. All instruments were removed from the abdomen and accounted for x2 including sponges, needles and retractors and the patient was sent to recovery in stable condition. I attest to the content of the Intraoperative Record and any orders documented therein. Any exception s are noted below.
--- NOTE | 2019-05-06 10:24 | Anesthesiology Progress Note ---
Date of Service May 06, 2019 Anesthesia Post Procedure Vital Signs Vital Signs: Temp Pulse Resp BP Pulse Ox 05/06/19 10:20 66 94 05/06/19 10:15 74 95 05/06/19 10:10 77 99 05/06/19 10:06 78 20 132/71 05/06/19 10:05 76 100 05/06/19 10:04 73 87 L 05/06/19 10:00 74 133/71 100 05/06/19 09:58 43 L 236/137 H 05/06/19 09:56 20 05/06/19 09:55 66 100 05/06/19 09:50 79 99 05/06/19 09:49 78 158/70 H 05/06/19 09:47 114 H 182/114 H 05/06/19 09:45 80 20 84 L 05/06/19 09:40 76 94 05/06/19 09:39 130 H 143/56 H 05/06/19 09:36 20 05/06/19 09:35 80 99 05/06/19 09:30 76 100 05/06/19 09:27 81 182/87 H 05/06/19 09:26 20 05/06/19 09:25 80 100 05/06/19 09:20 76 100 05/06/19 09:16 75 20 110/61 05/06/19 09:15 76 100 05/06/19 09:10 76 99 05/06/19 09:06 36.5 C 82 18 119/68 05/06/19 09:05 83 100 05/06/19 07:31 36.9 C 78 20 139/72 05/06/19 05:58 78 135/78 05/06/19 05:48 80 131/85 05/06/19 05:42 36.9 C 18 05/06/19 05:38 84 141/79 H Pain Intensity Abdomen: Pain Intensity: 3 Transfer of Care Handoff Completed per policy Notes Mental Status: alert / awake / arousable and participated in evaluation Patient Amnestic to Procedure: Yes Nausea / Vomiting: adequately controlled Pain: adequately controlled Airway Patency, RR, SpO2: stable & adequate BP & HR: stable & adequate Hydration State: stable & adequate Neuraxial Anesthesia: was administered and sensory block resolved Anesthetic Complications: no major complications apparent
[2019-05-06] MEDS: SIMETHICONE 80 MG CHEW PO SCH ×3 (14:07→20:51)
[2019-05-06] MEDS ORDERED: OXYTOCIN 20 UNITS in LACTATED RINGER'S 1,000 ML IV SCH (20:45)
[2019-05-06] MEDS: DOCUSATE SODIUM 100 MG CAP PO SCH (20:51)
[2019-05-07] MEDS ORDERED: DiphenhydrAMINE HCL 50 MG/ML VIAL IV PRN (02:30)
[2019-05-07] MEDS ORDERED: ONDANSETRON INJ 2 MG/ML 2 ML VIAL IV PRN (02:30)
[2019-05-07] MEDS ORDERED: PROMETHAZINE HCL 25 MG in SODIUM CHLORIDE 0.9% 50 ML IV PRN (02:30)
[2019-05-07] MEDS: IBUPROFEN 600 MG TAB PO PRN ×5 (02:39→21:30)
[2019-05-07] MEDS: OXYCODONE/ACETAMINOPHEN 5mg/325mg TAB PO PRN ×5 (02:39→21:30)
[2019-05-07 07:28] LABS: Basophils # (auto) 0.01 K/uL (0-0.2); Basophils % (auto) 0.1 %; Eosinophils # (auto) 0.05 K/uL (0-0.5); Eosinophils % (auto) 0.5 %; Hematocrit (blood only) 33.6 % (37-47); Immature Granulocytes # (auto) 0.05 K/uL (0.00-0.02); Immature Granulocytes % (auto) 0.5 %; Lymphocytes # (auto) 1.61 K/uL (1.2-3.4); Lymphocytes % (auto) 15.1 %; Mean Corpuscular Hemoglobin 28.5 pg (25-34); Mean Corpuscular Hgb Conc 32.7 g/dL (32-36); Mean Platelet Volume 12.4 fL (7.4-10.4); Monocytes # (auto) 0.52 K/uL (0.11-0.59); Monocytes % (auto) 4.9 %; Neutrophils # (auto) 8.45 K/uL (1.4-6.5); Neutrophils % (auto) 78.9 %; Platelet Count 120 K/uL (130-400); Platelet Estimate Decreased (Normal); RDW Standard Deviation 47.4 fL (36.4-46.3); Red Blood Count 3.86 M/uL (4.2-5.4); White Blood Count 10.69 K/uL (4.8-10.8)
--- NOTE | 2019-05-07 07:39 | Anesthesiology Progress Note ---
Date of Service May 07, 2019 Anesthesia Post Procedure Vital Signs Vital Signs: Temp Pulse Pulse Resp BP BP Pulse Ox 05/07/19 04:00 37.0 C 83 18 124/75 97 05/07/19 02:30 18 97 05/07/19 02:00 18 98 05/07/19 01:00 18 98 05/07/19 00:45 37.0 C 77 18 130/86 96 05/07/19 00:00 18 98 05/06/19 23:00 18 97 05/06/19 22:00 18 96 05/06/19 21:00 18 97 05/06/19 20:35 37.2 C 89 18 137/89 97 05/06/19 20:00 18 98 05/06/19 19:00 18 97 05/06/19 16:15 36.6 C 69 18 148/86 H 98 05/06/19 15:15 18 98 05/06/19 14:15 18 96 05/06/19 13:15 18 98 05/06/19 12:15 36.9 C 86 18 143/88 H 95 05/06/19 11:15 36.9 C 87 16 129/87 96 05/06/19 11:10 82 94 05/06/19 11:06 36.9 C 86 20 130/76 05/06/19 11:05 92 H 94 05/06/19 11:00 91 H 94 05/06/19 10:55 84 96 05/06/19 10:50 80 94 05/06/19 10:45 79 96 05/06/19 10:40 86 97 05/06/19 10:37 82 129/69 05/06/19 10:36 20 05/06/19 10:35 87 98 05/06/19 10:30 79 99 05/06/19 10:25 82 95 05/06/19 10:20 66 94 05/06/19 10:15 74 95 05/06/19 10:10 77 99 05/06/19 10:06 78 20 132/71 05/06/19 10:05 76 100 05/06/19 10:04 73 87 L 05/06/19 10:00 74 133/71 100 05/06/19 09:58 43 L 236/137 H 05/06/19 09:56 20 05/06/19 09:55 66 100 05/06/19 09:50 79 99 05/06/19 09:49 78 158/70 H 05/06/19 09:47 114 H 182/114 H 05/06/19 09:45 80 20 84 L 05/06/19 09:40 76 94 05/06/19 09:39 130 H 143/56 H 05/06/19 09:36 20 05/06/19 09:35 80 99 05/06/19 09:30 76 100 05/06/19 09:27 81 182/87 H 05/06/19 09:26 20 05/06/19 09:25 80 100 05/06/19 09:20 76 100 05/06/19 09:16 75 20 110/61 05/06/19 09:15 76 100 05/06/19 09:10 76 99 05/06/19 09:06 36.5 C 82 18 119/68 05/06/19 09:05 83 100 Pain Intensity Abdomen: Pain Intensity: 3 Transfer of Care Handoff Completed per policy Notes Mental Status: alert / awake / arousable Patient Amnestic to Procedure: No Nausea / Vomiting: adequately controlled Pain: adequately controlled Airway Patency, RR, SpO2: stable & adequate BP & HR: stable & adequate Hydration State: stable & adequate Neuraxial Anesthesia: was administered and sensory block resolved Anesthetic Complications: no major complications apparent and Pt Satisfied with anesthetic care
[2019-05-07] MEDS: DOCUSATE SODIUM 100 MG CAP PO SCH ×2 (08:50→21:30)
[2019-05-07] MEDS: SIMETHICONE 80 MG CHEW PO SCH ×4 (08:50→21:30)
[2019-05-07] MEDS: FERROUS SULFATE 325 MG TAB PO SCH (08:50)
[2019-05-07] MEDS: PRENATAL VITAMIN 1 TAB PO SCH (08:50)
--- NOTE | 2019-05-07 11:02 | Surgery Progress Note ---
Date of Service May 07, 2019 Subjective POD#1 doing well passing gas tolerating diet out of bed Physical Exam Constitutional: WD/WN, vitals as above comfortable abdomen soft non- tender neg Sara's Results & Data Vital Signs (Past 12 Hours) Vital Signs Temp Pulse Resp BP Pulse Ox 05/07/19 08:00 36.8 C 77 18 132/88 98 05/07/19 04:00 37.0 C 83 18 124/75 97 05/07/19 02:30 18 97 05/07/19 02:00 18 98 05/07/19 01:00 18 98 05/07/19 00:45 37.0 C 77 18 130/86 96 05/07/19 00:00 18 98 Laboratory Results Laboratory Results - last 72 hr 05/06/19 05/06/19 05/07/19 05:39 05:39 06:51 WBC 10.91 H 10.69 RBC 4.28 3.86 L Hgb 12.3 11.0 L Hct 36.9 L 33.6 L MCV 86.2 87.0 MCH 28.7 28.5 MCHC 33.3 32.7 RDW Std Deviation 46.2 47.4 H RDW Coeff of [place] 14.8 H 15.0 H Plt Count 135 120 L MPV 12.6 H 12.4 H Immature Gran % (Auto) 0.8 0.5 Neut % (Auto) 68.4 78.9 Lymph % (Auto) 23.7 15.1 [place] % (Auto) 5.1 4.9 Eos % (Auto) 1.8 0.5 Baso % (Auto) 0.2 0.1 Immature Gran # (Auto) 0.09 H 0.05 H Neut # (Auto) 7.45 H 8.45 H Lymph # (Auto) 2.59 1.61 [place] # (Auto) 0.56 0.52 Eos # (Auto) 0.20 0.05 Baso # (Auto) 0.02 0.01 Platelet Estimate Decreased L Blood Type A Positive Antibody Screen NEGATIVE Wiil advance diet and care
[2019-05-07] MEDS ORDERED: bisacodyL 5 MG TABEC PO SCH (20:00)
[2019-05-08] MEDS: IBUPROFEN 600 MG TAB PO PRN ×4 (05:55→20:27)
[2019-05-08] MEDS: OXYCODONE/ACETAMINOPHEN 5mg/325mg TAB PO PRN ×4 (05:56→20:27)
[2019-05-08 06:42] LABS: Hemoglobin 11.4 g/dL (12.0-16.0)
[2019-05-08] MEDS: PRENATAL VITAMIN 1 TAB PO SCH (07:54)
[2019-05-08] MEDS: SIMETHICONE 80 MG CHEW PO SCH ×4 (07:54→20:27)
[2019-05-08] MEDS: DOCUSATE SODIUM 100 MG CAP PO SCH ×2 (07:54→20:27)
[2019-05-08] MEDS: FERROUS SULFATE 325 MG TAB PO SCH (07:54)
--- NOTE | 2019-05-08 09:05 | Obstetrical Progress Note ---
Date of Service May 08, 2019 Subjective Patient is seen and examined. She feels well, no complaints. Pain is under control with oral meds. Ambulating without dizziness Voiding without difficulty Tolerating regular diet with out N&V Flatus + BM neg Bleeding is minimal No fever/ chills/ CP/ SOB/ N&V/ Leg pain Breast feeding without problems Vital Signs Temp Pulse Resp BP Pulse Ox 05/08/19 07:50 36.6 C 64 18 134/83 98 05/08/19 00:30 36.7 C 78 18 139/86 97 05/07/19 19:35 36.8 C 78 18 139/83 98 05/07/19 15:00 36.6 C 78 18 123/72 98 Lab Results 05/06/19 05/06/19 05/07/19 Range/Units 05:39 05:39 06:51 WBC 10.91 H 10.69 (4.8-10.8) K/uL RBC 4.28 3.86 L (4.2-5.4) M/uL Hgb 12.3 11.0 L (12.0-16.0) g/dL Hct 36.9 L 33.6 L (37-47) % MCV 86.2 87.0 (80-100) fL MCH 28.7 28.5 (25-34) pg MCHC 33.3 32.7 (32-36) g/dL RDW Std Deviation 46.2 47.4 H (36.4-46.3) fL RDW Coeff of [place] 14.8 H 15.0 H (11.5-14.5) % Plt Count 135 120 L (130-400) K/uL MPV 12.6 H 12.4 H (7.4-10.4) fL Immature Gran % (Auto) 0.8 0.5 % Neut % (Auto) 68.4 78.9 % Lymph % (Auto) 23.7 15.1 % [place] % (Auto) 5.1 4.9 % Eos % (Auto) 1.8 0.5 % Baso % (Auto) 0.2 0.1 % Immature Gran # (Auto) 0.09 H 0.05 H (0.00-0.02) K/uL Neut # (Auto) 7.45 H 8.45 H (1.4-6.5) K/uL Lymph # (Auto) 2.59 1.61 (1.2-3.4) K/uL [place] # (Auto) 0.56 0.52 (0.11-0.59) K/uL Eos # (Auto) 0.20 0.05 (0-0.5) K/uL Baso # (Auto) 0.02 0.01 (0-0.2) K/uL Platelet Estimate Decreased L (Normal) Blood Type A Positive Antibody Screen NEGATIVE 05/08/19 Range/Units 06:25 WBC (4.8-10.8) K/uL RBC (4.2-5.4) M/uL Hgb 11.4 L (12.0-16.0) g/dL Hct 35.0 L (37-47) % MCV (80-100) fL MCH (25-34) pg MCHC (32-36) g/dL RDW Std Deviation (36.4-46.3) fL RDW Coeff of [place] (11.5-14.5) % Plt Count (130-400) K/uL MPV (7.4-10.4) fL Immature Gran % (Auto) % Neut % (Auto) % Lymph % (Auto) % [place] % (Auto) % Eos % (Auto) % Baso % (Auto) % Immature Gran # (Auto) (0.00-0.02) K/uL Neut # (Auto) (1.4-6.5) K/uL Lymph # (Auto) (1.2-3.4) K/uL [place] # (Auto) (0.11-0.59) K/uL Eos # (Auto) (0-0.5) K/uL Baso # (Auto) (0-0.2) K/uL Platelet Estimate (Normal) Blood Type Antibody Screen PE: General: Alert, orientedx3, NAD CVS: S1S2 RRR Lungs; CTAB Abd: soft, NT, ND, BS+, fundus firm, below Umbilicus Incision: Clean, dry, intact Perineum intact, Lochia rubra minimal Ext; NT, 2+/2+ edema AP: 34 yo s/p C Section, pod# 2 VSS Afebrile doing well Continue routine postop care Encourage ambulation, PO intake All questions were answered D/C home tomorrow Results & Data Vital Signs (Past 12 Hours) Vital Signs Temp Pulse Resp BP Pulse Ox 05/08/19 07:50 36.6 C 64 18 134/83 98 05/08/19 00:30 36.7 C 78 18 139/86 97
[2019-05-08] MEDS ORDERED: SENNA 8.6 MG TAB PO ONE (09:06)
[2019-05-08] MEDS ORDERED: bisacodyL 10 MG SUPP PR PRN (09:23)
[2019-05-09] MEDS: IBUPROFEN 600 MG TAB PO PRN ×3 (00:16→12:40)
[2019-05-09] MEDS: OXYCODONE/ACETAMINOPHEN 5mg/325mg TAB PO PRN ×3 (00:17→12:40)
[2019-05-09] MEDS: SIMETHICONE 80 MG CHEW PO SCH ×2 (08:16→12:40)
[2019-05-09] MEDS: FERROUS SULFATE 325 MG TAB PO SCH (08:16)
[2019-05-09] MEDS: DOCUSATE SODIUM 100 MG CAP PO SCH (08:16)
[2019-05-09] MEDS: PRENATAL VITAMIN 1 TAB PO SCH (08:16)
--- NOTE | 2019-05-09 09:05 | Obstetrical Progress Note ---
Date of Service May 09, 2019 Assessment & Plan (1) delivery delivered: POD #3 Pt doing well No complaints Subjective Ambulation: ambulating normally Voiding: no voiding problems Passing Gas:: Yes Diet Tolerance:: clear liquids Lochia:: Small Feeding Type:: breast feeding Review of Systems All systems reviewed & are unremarkable except as noted in HPI & below Physical Exam Constitutional WD/WN, vitals as above well developed and well nourished Eyes PERRL, conjunctivae normal, anicteric sclerae ENMT external ear and nose normal, oropharynx normal Neck trachea midline, no thyromegaly Respiratory normal respiratory effort, lungs clear to auscultation Cardiovascular RRR, no murmur, no edema Chest (Breasts) normal inspection/palpation of breasts Gastrointestinal (Abdomen) normal bowel sounds, soft, nontender, no hepatosplenomegaly Musculoskeletal no cyanosis or clubbing, extremities motor strength 5/5 Skin no rashes, warm and dry + incision (Clean,dry and intact) Neurologic patellar DTR's 2+ bilat, sensation intact Psychiatric A+Ox3, euthymic affect Genitourinary normal external appearance Lymphatic no cervical or axillary lymphadenopathy Results & Data Vital Signs (Past 12 Hours) Vital Signs Temp Pulse Resp BP 05/09/19 00:02 36.9 C 67 18 146/84 H
[2019-05-09 10:17] VITALS: BP 136/85; PULSE 68; TEMP 97.9; O2SAT 98
--- NOTE | 2019-05-10 03:55 | Discharge Summary ---
CHIEF COMPLAINT: 1. at term. 2. Prior section, wishes to have repeat , declined vaginal after . HISTORY OF PRESENT ILLNESS: This is a 34-year-old G2, P1, due date 05/07/2019, prior section, who wished to have repeat section. The patient presented to [facility] on 05/06/2019 where she delivered a live male, see the pediatric record as well as weight. Surgery was unremarkable. Details of surgery are in the surgical record. The patient did well postop and on postop day #1 and #2 continued to improve. Diet was advanced. Activity was advanced as well. She has been discharged home today on 05/09/2019 in stable condition. PAST MEDICAL HISTORY: 1. History of anxiety. 2. History of obesity. PAST SURGICAL HISTORY: History of sections and dental procedures. FAMILY HISTORY: Noncontributory. SOCIAL HISTORY: The patient denies tobacco, drug or alcohol use. ALLERGIES: THE PATIENT IS ALLERGIC TO TRAMADOL AND ULTRACET. PHYSICAL EXAMINATION: VITAL SIGNS: On 05/09/2019 showed blood pressure 136/85, pulse of 68, respiration of 18, temperature of 36.6. HEART: S1, S2, regular rhythm and rate. LUNGS: Clear to auscultation bilaterally. ABDOMEN: Nontender, nondistended, positive bowel sounds. Incision clean, dry and intact. EXTREMITIES: No cyanosis, clubbing or edema. LABORATORY DATA: On 05/08/2019 showed hemoglobin of 11.4, hematocrit of 35.0. CONDITION ON DISCHARGE: Stable. OPERATION: Repeat section. DISCHARGE DIAGNOSIS: Postoperative section. PLAN ON DISCHARGE: The patient is discharged home with instructions regarding activity, diet and followup appointment.
== END 2019-05-09 15:04 | disposition home or self-care (01) | DRG 788 ==
LOC: 4S1 05:24 → EDSTATUS 07:30 → 4S2 11:15